=== PATIENT | male | born 1965 | race Caucasian/White ===

== ENCOUNTER 2017-06-20 09:00 | Inpatient (IN) | payer BC ==
[2017-08-01] MEDS ORDERED: VANCOMYCIN HCL 1,000 MG in DEXTROSE 5 % IN WATER 250 ML IVPB ONE ×2 (06:00)
[2017-08-01] MEDS ORDERED: CELECOXIB 100 MG CAPSULE PO ONE (06:00)
[2017-08-01] MEDS ORDERED: FAMOTIDINE 20MG TABLET PO ONE (06:00)
[2017-08-01] MEDS ORDERED: MECLIZINE 25 MG TABLET PO ONE (06:00)
[2017-08-01] MEDS ORDERED: METOCLOPRAMIDE 10 MG TABLET PO ONE (06:00)
[2017-08-01] MEDS ORDERED: CEFAZOLIN 2 Gram 2 GM/50 ML BAG IVPB ONE (06:00)
[2017-08-01 12:06] LABS: ABO GROUP A; ANTIBODY SCREEN NEGATIVE (NEGATIVE); RH TYPE POSITIVE
[2017-08-01] MEDS ORDERED: 0.9 % SODIUM CHLORIDE 10 ML VIAL IVP ONE (14:00)
[2017-08-01] MEDS ORDERED: TRANEXAMIC ACID 1,000 MG/10 ML ML IV ONE (14:00)
[2017-08-01] MEDS ORDERED: ACETAMINOPHEN 325 MG TAB PO PRN (15:50)
[2017-08-01] MEDS ORDERED: ONDANSETRON HCL IV 4 MG/2 ML VIAL IVP PRN (15:50)
[2017-08-01] MEDS ORDERED: AL HYDROX/MAG HYDROX 30ML UD PO PRN (15:50)
[2017-08-01] MEDS ORDERED: ACETAMINOPHEN W/ CODEINE 300MG/60MG TABLET PO PRN ×2 (15:50)
[2017-08-01] MEDS ORDERED: HYDROMORPHONE HCL 2 MG/ML VIAL IM PRN (15:50)
[2017-08-01] MEDS ORDERED: BISACODYL 10 MG SUPP RC PRN (15:50)
[2017-08-01] MEDS ORDERED: ZOLPIDEM TARTRATE 5 MG TABLET PO PRN (15:50)
[2017-08-01] MEDS ORDERED: NALOXONE 0.4 MG/1 ML VIAL IVP PRN (15:50)
[2017-08-01] MEDS ORDERED: KETOROLAC 30 MG/ML VIAL IVP PRN ×2 (15:50)
[2017-08-01] MEDS ORDERED: MAGNESIUM HYDROXIDE 30 ML UDC PO PRN (15:50)
[2017-08-01] MEDS ORDERED: HYDROCODONE/APAP 10/325 TABLET PO PRN (15:50)
[2017-08-01] MEDS ORDERED: PROPOFOL 10 MG/ML VIAL IV ONE (15:59)
[2017-08-01] MEDS ORDERED: *PACU ONLY* KETAMINE HCL 10 MG/ML (20ML) VIAL IV ONE (15:59)
[2017-08-01] MEDS ORDERED: HYDROMORPHONE HCL 2 MG/ML VIAL IV ONE (15:59)
[2017-08-01] MEDS ORDERED: MIDAZOLAM HCL 2MG/2ML VIAL IV ONE (15:59)
[2017-08-01] MEDS ORDERED: FENTANYL PF 100MCG/2ML VIAL IV ONE (15:59)
[2017-08-01] MEDS ORDERED: PHENYLEPHRINE HCL 10 MG/ML VIAL IVP ONE (15:59)
--- NOTE | 2017-08-01 16:42 | Operative Note ---
DATE OF SURGERY: 08/01/2017 PREOPERATIVE DIAGNOSIS: END-STAGE ARTHROSIS OF THE LEFT HIP. POSTOPERATIVE DIAGNOSIS: END-STAGE ARTHROSIS OF THE LEFT HIP. PROCEDURE: CEMENTLESS LEFT TOTAL HIP ARTHROPLASTY USING DOSHI-NEPHEW COMPONENTS WITH A SIZE 60 NO-HOLE REFLECTION CUP, A 35 DEGREE OFFSET, 32 MM DIAMETER HIGHLY CROSS-LINKED LINER, A SIZE 16 CEMENTLESS ECHELON STEM HIGH OFFSET WITH A +8, 32 MM DIAMETER OXINIUM HEAD. STAFF SURGEON: DR. MARINELLI. ANESTHESIA: SPINAL. PREPARATION: CHLORAPREP. INDIVIDUAL CONSIDERATION: NONE. PROCEDURE: The patient was taken to the Operating Room and placed supine on the operating room table. He had successful induction of a spinal anesthetic. He was then placed on his side, left side up, and his left leg and hip were prepped and draped in the usual fashion. The patient had direct posterior approach to the hip. Sharp dissection was carried down through the skin and subcutaneous tissues. Small veins were coagulated with a Bovie. The tensor gluteal fascia was opened along the entire length of the incision and deep retractors were placed. Short external rotators were identified, piriformis fossa and removed exposing the posterior capsule. The posterior capsulectomy was performed. The hip was dislocated posteriorly. The patient had exposed bone on the head with osteophytes. A femoral neck cut was then made a little above a fingerbreadth above the lesser troch using an oscillating saw. A rim capsulectomy was performed. Large ligamentum was debrided out with a Bovie. Starting with 49 mm reamer to get to just to the medial wall, I reamed the introitus, which was a 58 for a size 60 cup. I went to 59 and then slightly essentially reamed to 58. After a thorough irrigation, I impacted a size 60 no-hole reflection cup at 20 degrees of forward flexion and 40 degrees of abduction using the extra-articular alignment guide and bony landmarks. It was a solid cementless fixation. The center cap screw was placed and I placed a 35-degree offset liner and 32 mm with the offset posterior and inferior. This gave an excellent stable acetabular construct and this was packed off. The proximal femur was delivered into the wound and box cutting osteotome was used to remove proximal metaphyseal bone. Mid stem reaming was done to a size 16. I started feeling cortex at maybe 14 broaching to a 16. Anteversion was dialed in to follow the natural anteversion angle, which was 25 to 30 degrees. Calcar reaming with the high offset trial and a +8 femoral head, there was solid stability. After removing the trial and irrigating, I impacted a size 16 high offset cementless [place] stem with solid cementless fixation and solid calcar contact. Thorough irrigation again with pulsatile Betadine and saline to clear out any debris. Dried the Alberto taper and impacted a +8, 32 mm diameter Oxinium head. I had full anterior stability and external rotation and extension. I was able to flex his knee up into his chest, internally rotated it 20 to 30 degrees still stable, I had 90 degrees of flexion and 90 degrees of internal rotation I still had posterior stability. Hemostasis was obtained with a Bovie. The sciatic nerve was inspected and found to be completely intact. I had excellent hemostasis. The patient did receive a gram of Tranexamic Acid preoperatively. I mixed a gram of Tranexamic Acid with 30 mL of saline and placed this deep to the fascia. The fascia was then closed with a running #2 Quill, the subcutaneous was closed with multiple layers of running 0 Quill, and the skin was closed with laney and a sterile Bulkee compressive Aquacel-type dressing was applied. The patient tolerated the procedure well. Needle and sponge counts were correct. Estimated blood loss was 600 mL. We will check his hemoglobin in the morning. There were no complications. JOB NUMBER: [id number] MTDD
[2017-08-01] MEDS: RIVAROXABAN 10 MG TABLET PO SCH (18:19)
[2017-08-01] MEDS: DIPHENHYDRAMINE HCL 25 MG CAPSULE PO PRN (18:36)
[2017-08-01] MEDS: CEFAZOLIN 2 Gram 2 GM/50 ML BAG IVPB SCH (20:49)
[2017-08-01] MEDS: DOCUSATE SODIUM 100 MG CAPSULE PO SCH (21:03)
[2017-08-01] MEDS ORDERED: ZOLPIDEM TARTRATE 5 MG TABLET PO SCH (22:00)
[2017-08-01] MEDS: POTASSIUM CHLORIDE/D5-0.9%NACL 20 MEQ/1,000 ML BAG IV SCH (23:34)
[2017-08-02] MEDS: DIPHENHYDRAMINE HCL 25 MG CAPSULE PO PRN (00:38)
[2017-08-02] MEDS: POTASSIUM CHLORIDE/D5-0.9%NACL 20 MEQ/1,000 ML BAG IV SCH (00:40)
[2017-08-02] MEDS: CEFAZOLIN 2 Gram 2 GM/50 ML BAG IVPB SCH ×2 (04:39→12:49)
[2017-08-02] MEDS: HYDROCODONE/APAP 10/325 TABLET PO PRN ×2 (04:39→09:00)
[2017-08-02 06:55] LABS: HEMATOCRIT 34.5 % (42.0-52.0)
[2017-08-02 07:54] LABS: BLOOD UREA NITROGEN 11 mg/dL (6-20); CREATININE 0.7 mg/dL (0.7-1.2); EST GLOMERULAR FILTRATION RATE > 60 mL/min; GLUCOSE,RANDOM 95 mg/dL (74-109)
[2017-08-02] MEDS: DOCUSATE SODIUM 100 MG CAPSULE PO SCH (09:37)
[2017-08-02] MEDS: RIVAROXABAN 10 MG TABLET PO SCH (09:37)
[2017-08-02] MEDS ORDERED: FERROUS SULFATE 325 MG TAB PO SCH (10:00)
--- NOTE | 2017-08-02 10:50 | Rehab Evaluation ---
Patient Information - Patient Information Diagnosis: L hip OA Ordered Treatment: PT Evaluate and Treat Status: Initial Evaluation Surgery: Yes (THR) Date of Surgery: 08/01/17 Past Medical/Surgical Hx: PAST MEDICAL/SURGICAL HISTORY Past Surgical History lap band sx 2009; appy; left foot sx(fusion) 2000; EGD; cardiac cath --normal results. PMH - Respiratory Hx Respiratory Disorders Yes Hx Asthma No Hx Bronchitis Yes: years ago Hx Chronic Obstructive No Pulmonary Disease (COPD) Hx Dyspnea No Hx Pneumonia No Hx Pulmonary Embolism No Hx Sleep Apnea Yes: before lap band sx Hx Tuberculosis No Hx of CPAP Yes: only used for 1 month-felt suffocation Hx of URI No PMH - Cardiovascular Hx Cardiovascular Disorders Yes Hx Abnormal EKG No Hx Cardiac Catheterization Yes Hx Chest Pain Yes: had 6 ulcers-not heart prob Hx Congestive Heart Failure No Hx Deep Vein Thrombosis No Hx Edema No Hx Heart Attack No Hx Hypertension Yes: not since wt loss Hx Hypotension No Hx Irregular Heartbeat No Hx Palpitations No Hx Pacemaker/Defibrillator No Hx Vascular Disease No Exercise Tolerance Fair Comment: painful hip- walks a bit outside PMH - Neuro Hx Neurological Disorders No PMH - GI Hx Gastrointestinal Disorders Yes Hx Abdominal Pain No Hx Celiac Disease No Hx Crohn's Disease No Hx Diverticulitis No Hx Gastrointestinal Bleed No Hx Gastroesophageal Reflux No Hx Hepatitis/Jaundice No Hx Hiatal Hernia No Hx Irritable Bowel No Hx Liver Disease No Hx Nausea/Vomiting No Hx Obstructive Bowel No Hx Pancreatitis No Hx Rectal Bleeding No Hx Ulcer Yes Hx Weight Loss/Weight Gain Yes: wt loss from lap band-200# PMH - Hx Genitourinary Disorders No PMH - Endocrine Hx Endocrine Disorders No Hx Diabetes No Hx Thyroid Disease No PMH - Musculoskeletal Hx Musculoskeletal Disorders Yes Hx Arthritis Yes: both hips & left foot Hx Back Injury No Hx Fibromyalgia No Hx Gout No Hx Musculoskeletal Disease No Hx Osteoporosis No Comment: has plantar fascitis rt heel-painful PMH - Psych Hx Psychiatric Problems Yes Hx Anxiety Yes Hx Behavior Problems No Hx Depression Yes Hx Emotional Abuse No Hx Sexual Abuse No Hx Suicide Attempt No Major Depressive Episode No Feelings of Hopelessness No PMH - Hematology/Oncology Hx Hematology/Oncology No Disorders Premorbid Status: Detail (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 The patient has 11 steps to climb without a rail to his bed room and bathroom on the second floor. The patient's bathroom is equipped with a tub/shower combination with one step to step out and a elevated toilet seat. The patient was vended a walker with wheels per his request.) Precautions: [place], Other (FINN precautions, WBAT on L LE) - Time With Patient Total Time Spent With Patient (Min): 30 Treatment Procedures: Detail (Initial Evaluation, gait training) Subjective Information - Subjective Information Per Patient (The patient has no complaints of L hip pain.) Objective Data - Mental Status Patient Orientation: Oriented x3 - Visual Perception Appears within normal limits for therapeutic activities - ROM Not within normal limits (The patient's L hip is within FINN precautions, all other LE AROM is WNL.) - Strength/Tone Within normal limits (The patient's R LE strength and L ankle and knee musculature strength is 5/5, L hip strength is at least 3/5 ( functional) and within total hip precautions.) - Bed Mobility Independent (The patient was independent with supine to and sit transfer and scooting up in bed.) - Transfers Independent (Independent with sit to stand and toilet transfer.) - Balance Balance Sitting: Good Balance Standing: Good - Gait Detail (The patient ambulated with standard walker independently with WBAT on the L LE a distance of 134 feet x 1. The patient ambulated on a flight of 3 and 8 steps independently with use of one railing and folded walker. The patient's was present to observe proper technique.) Therapy Assessment - Therapy Assessment Detail (The patient is independent with bed mobility, transfers and ambulation on levels and stairs. Patient's HEP and Total hip precautions were reviewed.) Patient Education - Patient Education Teaching Topic: Exercise/Activity (The patient completed THR exercises including ankle pumps, gluteal sets, hamstring and quad sets, hip abduction supine and heel slides.), Precautions (FINN precautions were reviewed.) Response: Return Demonstration Teaching Method: Handout Teaching Recipient: Patient Barriers To Learning: Age Related Problem List - Problem List Physical Therapy Problem List: Detail (Decreased L LE strength as to be expected following surgery.) Goals - Goals Physical Therapy Goals: All inpatient PT goals have been met. The patient is to recieve home therapy. Prognosis - Prognosis Good Plan - Plan Physical Therapy Plan: All inpatient PT goals have been met, the patient is discharged from inpatient PT at this time.
[2017-08-02] MEDS ORDERED: TRANEXAMIC ACID 1,000 MG/10 ML ML IV ONE (13:22)
[2017-08-02] MEDS ORDERED: BUPIVACAINE 0.75% W/EPI MPF 30ML VIAL IVP ONE (13:22)
--- NOTE | 2017-08-02 16:32 | Rehab Evaluation ---
Patient Information - Patient Information Diagnosis: L hip OA Ordered Treatment: OT Evaluate and Treat Status: Initial Evaluation Surgery: Yes (THR) Date of Surgery: 08/01/17 Past Medical/Surgical Hx: PAST MEDICAL/SURGICAL HISTORY Past Surgical History lap band sx 2009; appy; left foot sx(fusion) 2000; EGD; cardiac cath --normal results. PMH - Respiratory Hx Respiratory Disorders Yes Hx Asthma No Hx Bronchitis Yes: years ago Hx Chronic Obstructive No Pulmonary Disease (COPD) Hx Dyspnea No Hx Pneumonia No Hx Pulmonary Embolism No Hx Sleep Apnea Yes: before lap band sx Hx Tuberculosis No Hx of CPAP Yes: only used for 1 month-felt suffocation Hx of URI No PMH - Cardiovascular Hx Cardiovascular Disorders Yes Hx Abnormal EKG No Hx Cardiac Catheterization Yes Hx Chest Pain Yes: had 6 ulcers-not heart prob Hx Congestive Heart Failure No Hx Deep Vein Thrombosis No Hx Edema No Hx Heart Attack No Hx Hypertension Yes: not since wt loss Hx Hypotension No Hx Irregular Heartbeat No Hx Palpitations No Hx Pacemaker/Defibrillator No Hx Vascular Disease No Exercise Tolerance Fair Comment: painful hip- walks a bit outside PMH - Neuro Hx Neurological Disorders No PMH - GI Hx Gastrointestinal Disorders Yes Hx Abdominal Pain No Hx Celiac Disease No Hx Crohn's Disease No Hx Diverticulitis No Hx Gastrointestinal Bleed No Hx Gastroesophageal Reflux No Hx Hepatitis/Jaundice No Hx Hiatal Hernia No Hx Irritable Bowel No Hx Liver Disease No Hx Nausea/Vomiting No Hx Obstructive Bowel No Hx Pancreatitis No Hx Rectal Bleeding No Hx Ulcer Yes Hx Weight Loss/Weight Gain Yes: wt loss from lap band-200# PMH - Hx Genitourinary Disorders No PMH - Endocrine Hx Endocrine Disorders No Hx Diabetes No Hx Thyroid Disease No PMH - Musculoskeletal Hx Musculoskeletal Disorders Yes Hx Arthritis Yes: both hips & left foot Hx Back Injury No Hx Fibromyalgia No Hx Gout No Hx Musculoskeletal Disease No Hx Osteoporosis No Comment: has plantar fascitis rt heel-painful PMH - Psych Hx Psychiatric Problems Yes Hx Anxiety Yes Hx Behavior Problems No Hx Depression Yes Hx Emotional Abuse No Hx Sexual Abuse No Hx Suicide Attempt No Major Depressive Episode No Feelings of Hopelessness No PMH - Hematology/Oncology Hx Hematology/Oncology No Disorders Premorbid Status: Detail (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 The patient has 11 steps to climb without a rail to his bed room and bathroom on the second floor. The patient's bathroom is equipped with a tub/shower combination with one step to step out and a elevated toilet seat. The patient was vended a walker with wheels per his request.) Precautions: [place], Other (FINN precautions, WBAT on L LE) - Time With Patient Total Time Spent With Patient (Min): 20 Objective Data - Mental Status Patient Orientation: Oriented x3 - Visual Perception Appears within normal limits for therapeutic activities - ROM Within normal limits (BUE) - Strength/Tone Within normal limits (BUE 5/5 MMT) - Coordination Appears within normal limits for therapeutic activities - Bed Mobility Independent - Transfers Independent - Balance Balance Sitting: Good Balance Standing: Fair - Sensation Intact (lt touch intact BUE) - ADL's/IADL's Detail (Pt. demo. ability to don/doff BLE in elastic waist shorts and don/doff Kay[place]. socks after educ. was provided in adaptive dressing techniques and AE ( i.e. food and beverage assistant, sock aid, and long handled sponge). Pt. would benefit from use of a food and beverage assistant to adhere to hip precautions. Pt. plans to purchase from outside vendor/store.) Therapy Assessment - Therapy Assessment Detail (in-pt OT services not recommended at this time. Pt. has a positive support system and help if needed at home. Pt. demo. understanding of hip precautions, AE, and adaptive techniques. Pt. is mobile, active, and reports no pain.) Patient Education - Patient Education Teaching Topic: Equipment Use, Precautions Response: Return Demonstration, Verbalize Understanding Teaching Method: Discussion, Demonstration Teaching Recipient: Patient, Family () Barriers To Learning: None Problem List - Problem List Physical Therapy Problem List: Detail (Decreased L LE strength as to be expected following surgery.) Goals - Goals Physical Therapy Goals: All inpatient PT goals have been met. The patient is to recieve home therapy. Prognosis - Prognosis Good Plan - Plan Physical Therapy Plan: All inpatient PT goals have been met, the patient is discharged from inpatient PT at this time. Occupational Therapy Plan: D/C from OT services at this time. Pt. was educ. to call rehab dept. if Q's arise upon return home.
--- NOTE | 2017-08-02 20:09 | Discharge Summary ---
DATE OF ADMISSION: 08/01/2017 DATE OF DISCHARGE: 08/02/2017 DATE OF SURGERY: 08/01/2017 HISTORY: Mr. Hernandez a delightful 51-year-old male who presents with end-stage arthrosis of his left hip. He was admitted after a left total hip arthroplasty. Postoperatively, he did well. His hospital course was unremarkable. His discharge hemoglobin was 11. He did not require transfusion. DISCHARGE INSTRUCTIONS: The plan is to discharge him to home in the care of his family. Home PT and Visiting Nurses have been arranged. He will be given Xarelto for DVT prophylaxis and [place] for pain. He will follow-up in my office in four weeks. His Visiting Nurse will remove his sutures in two weeks. FINAL DIAGNOSIS/PRIMARY DIAGNOSIS: END-STAGE ARTHROSIS OF THE LEFT HIP. SECONDARY DIAGNOSES: ACUTE OPERATIVE BLOOD LOSS ANEMIA. OPERATIONS AND PROCEDURES: CEMENTLESS LEFT TOTAL HIP ARTHROPLASTY. DISCHARGE CONDITION: GOOD. JOB NUMBER: [id number] MTDD
== END 2017-08-02 14:56 | disposition home or self-care (01) | DRG 470 ==
LOC: MEDSURG 08-01 10:41
PROVIDERS: ADMIT Orthopaedic Surgery; ATTEND Orthopaedic Surgery
PROC: 0SRB06A Replacement of Left Hip Joint with Oxidized Zirconium on Polyethylene Synthetic Substitute, Uncemented, Open Approach (ICD-10-PCS; principal; 2017-08-01 13:45)
DX: M16.12 Unilateral primary osteoarthritis, left hip (principal)
CPT/HCPCS: 80048; 85014; 85018; 86850; 86900; 86901; 97165; J2370; J3480; J3490; J7060